=== PATIENT | female | born 1970 ===

== ENCOUNTER 2020-08-30 13:04 | Emergency (ER) | payer BC ==
--- NOTE | 2020-08-30 18:02 | Emergency Department Report ---
ED General Adult HPI - General Chief complaint: Fever Stated complaint: CHILLS,FEVER Time Seen by Provider: 08/30/20 17:17 Source: patient Mode of arrival: Ambulatory Limitations: No Limitations - History of Present Illness Initial comments: 50-year-old female who reports no significant past history presents to the ER today with complaints of subjective fever, chills, and generalized body aches, intermittent sharp left-sided abdominal pain, urinary frequency, mild rhinorrhea and nasal congestion. Patient states that symptoms started about a week ago. Patient states that the fever seems to be mainly at night. She denies any cough, chest pain or shortness of breath. She denies any dysuria, urinary odor, hematuria or any abnormal vaginal symptoms. She denies any vomiting or diarrhea. Patient denies any apparent ill contacts or recent travel. She states that she did not take the COVID-19 test. MD Complaint: Fever, chills, body aches, abd pain - Related Data Previous Rx's Medication Instructions Recorded Last Taken Type Ibuprofen [Motrin 800 MG tab] 800 mg PO Q6HR PRN #30 tablet 08/30/20 Unknown Rx cephALEXin [Keflex] 500 mg PO Q6HR #30 capsule 08/30/20 Unknown Rx Allergies Allergy/AdvReac Type Severity Reaction Status Date / Time tilapia fish Allergy Unknown Uncoded 08/30/20 19:18 ED Review of Systems ROS: Stated complaint: CHILLS,FEVER Other details as noted in HPI Comment: All other systems reviewed and negative Constitutional: chills, fever Eyes: denies: eye pain, eye discharge, vision change ENT: denies: ear pain, throat pain Respiratory: denies: cough, shortness of breath, wheezing Cardiovascular: denies: chest pain, palpitations Gastrointestinal: abdominal pain. denies: nausea, vomiting, diarrhea, constipation, hematemesis, hematochezia Genitourinary: frequency. denies: urgency, dysuria, hematuria, discharge, abnormal menses, dyspareunia Skin: denies: rash, lesions, change in color, change in hair/nails Neurological: denies: headache, weakness, numbness, paresthesias, confusion, abnormal gait, vertigo Psychiatric: denies: anxiety, depression Hematological/Lymphatic: denies: easy bleeding, easy bruising ED Past Medical Hx - Past Medical History Previous Medical History?: No - Surgical History Past Surgical History?: No - Medications Home Medications: Home Medications Medication Instructions Recorded Confirmed Last Taken Type Ibuprofen [Motrin 800 MG tab] 800 mg PO Q6HR PRN #30 tablet 08/30/20 Unknown Rx cephALEXin [Keflex] 500 mg PO Q6HR #30 capsule 08/30/20 Unknown Rx ED Physical Exam - General Limitations: No Limitations General appearance: alert, in no apparent distress - Head Head exam: Present: atraumatic, normocephalic, normal inspection - Eye Eye exam: Present: normal appearance, PERRL, EOMI Pupils: Present: normal accommodation - ENT ENT exam: Present: normal exam, mucous membranes moist, TM's normal bilaterally - Neck Neck exam: Present: normal inspection, full ROM. Absent: meningismus - Respiratory Respiratory exam: Absent: normal lung sounds bilaterally, respiratory distress, wheezes, rales - Cardiovascular Cardiovascular Exam: Present: regular rate, normal rhythm, normal heart sounds - GI/Abdominal GI/Abdominal exam: Present: soft. Absent: distended, tenderness, guarding, rebound - Back Exam Back exam: Present: normal inspection, CVA tenderness (L). Absent: CVA tenderness (R) - Neurological Exam Neurological exam: Present: alert, oriented X3, CN II-XII intact, normal gait - Psychiatric Psychiatric exam: Present: normal affect, normal mood - Skin Skin exam: Present: intact ED Course Vital Signs 08/30/20 08/30/20 16:11 19:30 Temperature 99.4 F Pulse Rate 98 H Respiratory 18 16 Rate Blood Pressure 119/81 O2 Sat by Pulse 98 Oximetry ED Medical Decision Making - Lab Data Result diagrams: 08/30/20 17:47 08/30/20 17:47 - Radiology Data Radiology results: report reviewed Patient: NEHEMIAS LEGGETT MR# : [id number] : 1970 Acct:[id number] Age/Sex: 50 / F ADM Date: 08/30/20 Loc: ED Attending Dr: Ordering Physician: BERKLEY MCHUGH Date of Service: 08/30/20 Procedure(s): XR chest routine 2V Accession Number(s): [id number] cc: BERKLEY MCHUGH Fluoro Time In Minutes: CHEST 2 VIEWS INDICATION / CLINICAL INFORMATION: fever. COMPARISON: None available. FINDINGS: SUPPORT DEVICES: None. HEART / MEDIASTINUM: No significant abnormality. LUNGS / PLEURA: No significant pulmonary or pleural abnormality. No pneumothorax. ADDITIONAL FINDINGS: No significant additional findings. IMPRESSION: 1. No acute findings. Signer Name: Zhou Mancera MD Signed: 08/30/2020 6:42 PM Workstation Name: [id number] Transcribed By: CW Dictated By: LEO MANCERA MD Electronically Authenticated By: LEO MANCERA MD Signed Date/Time: 08/30/201841 DD/ 41 TD/TT: Critical care attestation.: If time is entered above; I have spent that time in minutes in the direct care of this critically ill patient, excluding procedure time. ED Disposition Clinical Impression: UTI (urinary tract infection) Disposition: TO HOME OR SELFCARE Is pt being admited?: No Does the pt Need Aspirin: No Condition: Stable Instructions: Urinary Tract Infection, Adult Additional Instructions: Take the Keflex as prescribed. Take the Motrin as prescribed. Recommend that you drink lots of water. Follow-up with your primary care doctor next week. Return to the ER if your symptoms changes or worsens in any way. Prescriptions: cephALEXin [Keflex] 500 mg PO Q6HR #30 capsule Ibuprofen [Motrin 800 MG tab] 800 mg PO Q6HR PRN #30 tablet PRN Reason: PAin Referrals: DEXTER HIGHTOWER MD [Staff Physician] - 3-5 Days Forms: Work/School Release Form(ED) Time of Disposition: 19:57
[2020-08-30 18:22] LABS: Alanine Aminotransferase 13 units/L (7-56); Albumin 4.1 g/dL (3.9-5); BUN/Creatinine Ratio 14; Blood Urea Nitrogen 11 mg/dL (7-17); Calcium 9.4 mg/dL (8.4-10.2); Hemolysis Index 5
[2020-08-30 18:29] LABS: Basophils % (Auto) 0.3 % (0.0-1.8); Eosinophils % (Auto) 0.2 % (0.0-4.3); Hematocrit 38.6 % (30.3-42.9); Hemoglobin 12.9 gm/dl (10.1-14.3); Lymphocytes # (Auto) 1.4 K/mm3 (1.2-5.4); Lymphocytes % (Auto) 29.6 % (13.4-35.0); Mean Corpuscular HGB Conc 33 % (30-34); Mean Corpuscular Volume 95 fl (79-97); Monocytes # (Auto) 0.6 K/mm3 (0.0-0.8); Monocytes % (Auto) 13.2 % (0.0-7.3); Platelet Count 192 K/mm3 (140-440); Red Blood Count 4.05 M/mm3 (3.65-5.03)
--- NOTE | 2020-08-30 18:47 | XRay Report ---
CHEST 2 VIEWS INDICATION / CLINICAL INFORMATION: fever. COMPARISON: None available. FINDINGS: SUPPORT DEVICES: None. HEART / MEDIASTINUM: No significant abnormality. LUNGS / PLEURA: No significant pulmonary or pleural abnormality. No pneumothorax. ADDITIONAL FINDINGS: No significant additional findings. IMPRESSION: 1. No acute findings. Signer Name: Zhou Mancera MD Signed: 08/30/2020 6:42 PM Workstation Name: [id number]
[2020-08-30 18:59] LABS: Bacteria,Urine 4+ /HPF (Negative); Bilirubin,Urine NEG (Negative); Blood,Urine SM (Negative); Color,Urine Amber (Yellow); Mucus,Urine 3+ /HPF
[2020-08-30 19:00] LABS: WBC,Urine > 182.0 /HPF (0.0-6.0)
[2020-08-30] MEDS: IBUPROFEN 800 MG TAB PO ONE ×2 (19:30→19:38)
[2020-08-30] MEDS ORDERED: LIDOCAINE-MPF (1%) 10 MG/1 ML VIAL 5 ML INFILTRATI ONE (20:07)
[2020-08-30 20:17] VITALS: BP 111/62
== END 2020-08-30 20:15 | disposition home or self-care (01) ==
LOC: ED 13:04
DX: N39.0 Urinary tract infection, site not specified (principal); Z79.1 Long term (current) use of non-steroidal anti-inflammatories (NSAID); Z79.899 Other long term (current) drug therapy; Z91.013 Allergy to seafood
CPT/HCPCS: 36415; 71046; 80053; 81001; 83735; 84703; 85025; 87086; 99283; J0696; 87076; 87186

== ENCOUNTER 2020-12-04 15:42 | Emergency (ER) | payer BC ==
[2020-12-04 15:51] VITALS: BP 108/66
[2020-12-04 16:45] LABS: Bacteria,Urine 2+ /HPF (Negative); Bilirubin,Urine NEG (Negative); Blood,Urine MOD (Negative); Color,Urine Amber (Yellow); Mucus,Urine 2+ /HPF
[2020-12-04] MEDS ORDERED: SODIUM CHLORIDE 0.9% 1000 ML 1,000 ML IV ONE (17:00)
--- NOTE | 2020-12-04 17:36 | Emergency Department Report ---
ED General Adult HPI - General Chief complaint: Abdominal Pain Stated complaint: BLADDER, KIDNEY INFECTION Time Seen by Provider: 12/04/20 16:55 Source: patient Mode of arrival: Ambulatory Limitations: No Limitations - History of Present Illness Initial comments: 50-year-old female who reports no significant past medical history presents to the ER today with complaints of right flank pain and UTI symptoms. Patient states that her symptoms started 1 week ago. She reports urinary frequency, urinary odor dysuria, subjective fever, generalized body aches, chills, intermittent diaphoresis and nausea. She states that when she wiped after urinating today she noticed "brown stuff" on the toilet tissue but otherwise has not noticed any blood in her urine. She denies any bowel changes. She states that she took 400 mg ibuprofen which did not help much. She is unsure when her last menstrual cycle was. She reports no other symptoms at this time. MD Complaint: Right flank pain, UTI symptoms -: week(s) (1) Severity scale (0 -10): 5 - Related Data Previous Rx's Medication Instructions Recorded Last Taken Type Ibuprofen [Motrin 800 MG tab] 800 mg PO Q6HR PRN #30 tablet 08/30/20 Unknown Rx Ketorolac [Toradol] 10 mg PO Q6H PRN #20 tablet 12/04/20 Unknown Rx Ondansetron [Zofran Odt] 4 mg PO Q8HR #15 tab.rapdis 12/04/20 Unknown Rx cephALEXin [Keflex] 500 mg PO Q6HR #40 capsule 12/04/20 Unknown Rx Allergies Allergy/AdvReac Type Severity Reaction Status Date / Time tilapia fish Allergy Unknown Uncoded 12/04/20 15:48 ED Review of Systems ROS: Stated complaint: BLADDER, KIDNEY INFECTION Other details as noted in HPI Comment: All other systems reviewed and negative Constitutional: denies: chills, fever Eyes: denies: eye pain, eye discharge, vision change ENT: denies: ear pain, throat pain Respiratory: denies: cough, shortness of breath, wheezing Gastrointestinal: abdominal pain, nausea. denies: vomiting, diarrhea, constipation, hematemesis, melena, hematochezia Genitourinary: urgency, dysuria, frequency, other (Urinary odor). denies: hematuria, discharge, abnormal menses, dyspareunia Musculoskeletal: back pain Skin: denies: rash, lesions Neurological: denies: headache, weakness, numbness, paresthesias, confusion, abnormal gait, vertigo Psychiatric: denies: anxiety, depression, auditory hallucinations, visual hallucinations, homicidal thoughts, suicidal thoughts Hematological/Lymphatic: denies: easy bleeding, easy bruising ED Past Medical Hx - Past Medical History Previous Medical History?: No - Surgical History Past Surgical History?: No - Social History Smoking Status: Never Smoker Substance Use Type: None - Medications Home Medications: Home Medications Medication Instructions Recorded Confirmed Last Taken Type Ibuprofen [Motrin 800 MG tab] 800 mg PO Q6HR PRN #30 tablet 08/30/20 Unknown Rx Ketorolac [Toradol] 10 mg PO Q6H PRN #20 tablet 12/04/20 Unknown Rx Ondansetron [Zofran Odt] 4 mg PO Q8HR #15 tab.rapdis 12/04/20 Unknown Rx cephALEXin [Keflex] 500 mg PO Q6HR #40 capsule 12/04/20 Unknown Rx ED Physical Exam - General Limitations: No Limitations General appearance: alert, in no apparent distress - Head Head exam: Present: atraumatic, normocephalic, normal inspection - Eye Eye exam: Present: normal appearance, PERRL, EOMI Pupils: Present: normal accommodation - ENT ENT exam: Present: normal exam, mucous membranes moist - Neck Neck exam: Present: normal inspection, full ROM - Respiratory Respiratory exam: Present: normal lung sounds bilaterally. Absent: respiratory distress, wheezes, rales, rhonchi - Cardiovascular Cardiovascular Exam: Present: regular rate, normal rhythm, normal heart sounds - GI/Abdominal GI/Abdominal exam: Present: soft, tenderness (mild right upper quandrant ttp). Absent: distended, guarding, rebound, rigid - Back Exam Back exam: Present: normal inspection, full ROM, CVA tenderness (R) - Neurological Exam Neurological exam: Present: alert, oriented X3, CN II-XII intact, normal gait - Psychiatric Psychiatric exam: Present: normal affect, normal mood - Skin Skin exam: Present: intact ED Course Vital Signs 12/04/20 15:50 Temperature 98.5 F Pulse Rate 91 H Respiratory 20 Rate Blood Pressure 108/66 [Right] O2 Sat by Pulse 99 Oximetry ED Medical Decision Making - Lab Data Result diagrams: 12/04/20 17:11 12/04/20 17:11 - Radiology Data Radiology results: report reviewed Patient: NEHEMIAS LEGGETT MR# : [id number] : 1970 Acct:[id number] Age/Sex: 50 / F ADM Date: 12/04/20 Loc: ED Attending Dr: Ordering Physician: BERKLEY MCHUGH Date of Service: 12/04/20 Procedure(s): CT abdomen pelvis wo con Accession Number(s): [id number] cc: BERKLEY MCHUGH CT ABDOMEN AND PELVIS WITHOUT CONTRAST INDICATION / CLINICAL INFORMATION: Right flank pain chronic . TECHNIQUE: Axial CT images were obtained through the abdomen and pelvis without IV contrast. All CT scans at this location are performed using CT dose reduction for ALARA by means of automated exposure control. COMPARISON: None available. FINDINGS: LOWER CHEST: No significant abnormality. LIVER: No significant abnormality. GALLBLADDER: No significant abnormality. BILE DUCTS: No significant abnormality. PANCREAS: No significant abnormality. SPLEEN: No significant abnormality. ADRENALS: No significant abnormality. RIGHT KIDNEY / URETER: Mild inflammation adjacent to the right kidney. No active obstruction or definitive ureteral stone. LEFT KIDNEY / URETER: No significant abnormality. STOMACH / SMALL BOWEL: No significant abnormality. COLON: No significant abnormality. APPENDIX: Nonvisualized. No right lower quadrant inflammatory process. PERITONEUM: No free fluid. No free air. No fluid collection. LYMPH NODES: No significant adenopathy. VASCULAR STRUCTURES: No significant abnormality. URINARY BLADDER: No significant abnormality. REPRODUCTIVE ORGANS: No significant abnormality. ADDITIONAL FINDINGS: None. SKELETAL SYSTEM: No significant abnormality. IMPRESSION: Mild inflammation adjacent to the right kidney without active obstruction. Recently passed stone and infection are the most likely etiologies. Signer Name: Jensen Linares MD Signed: 12/04/2020 6:11 PM Workstation Name: [id number] Transcribed By: ES Dictated By: Jensen Linares MD Electronically Authenticated By: Jensen Linares MD Signed Date/Time: 12/04/201810 DD/ 05 TD/TT: - Medical Decision Making Labs reviewed -- CBC and CMP show no significant acute abnormalities. Urinalysis concerning for UTI. Urine culture is pending. CT abdomen pelvis without contrast shows Mild inflammation adjacent to the right kidney without active obstruction. Recently passed stone and infection are the most likely etiologies. Patient currently resting comfortably. She is not in any acute pain distress. She reports some improvement of her symptoms after IV fluids and pain meds. She is currently not toxic, or ill-appearing. He appears hydrated. She is neurologically intact with a normal gait. Her vital signs are stable. Discussed lab and imaging results with patient. She will be started on antibiotics for her UTI. Encouraged her to continue drinking lots of water. Recommend close follow-up with her primary care doctor but she understands to return to the ER if her symptoms worsens in any way. Patient was stable at time of discharge. Critical care attestation.: If time is entered above; I have spent that time in minutes in the direct care of this critically ill patient, excluding procedure time. ED Disposition Clinical Impression: UTI (urinary tract infection) Disposition: - TO HOME OR SELFCARE Is pt being admited?: No Does the pt Need Aspirin: No Condition: Stable Instructions: Urinary Tract Infection, Adult, [id number], Abdominal Pain (ED) Additional Instructions: Recommend that he take the Keflex and the Toradol as prescribed. Take the Zofran as needed for vomiting or nausea. Drink lots of fluids. Follow-up closely with your primary care doctor. Return to the ER if your symptoms changes or worsens in any way Prescriptions: cephALEXin [Keflex] 500 mg PO Q6HR #40 capsule Ketorolac [Toradol] 10 mg PO Q6H PRN #20 tablet PRN Reason: Pain Ondansetron [Zofran Odt] 4 mg PO Q8HR #15 tab.rapdis Referrals: [facility] [Provider Group] - 3-5 Days Forms: Work/School Release Form(ED) Time of Disposition: 19:42
[2020-12-04 18:06] LABS: Alanine Aminotransferase 20 units/L (7-56); Albumin 3.6 g/dL (3.9-5); BUN/Creatinine Ratio 16; Blood Urea Nitrogen 14 mg/dL (7-17); Calcium 9.2 mg/dL (8.4-10.2); Hemolysis Index 17
[2020-12-04 18:08] LABS: Basophils % (Auto) 0.1 % (0.0-1.8); Lymphocytes # (Auto) 1.1 K/mm3 (1.2-5.4); Lymphocytes % (Auto) 13.2 % (13.4-35.0); Mean Corpuscular HGB Conc 34 % (30-34); Mean Corpuscular Volume 93 fl (79-97); Monocytes # (Auto) 1.2 K/mm3 (0.0-0.8); Monocytes % (Auto) 14.9 % (0.0-7.3); Platelet Count 159 K/mm3 (140-440); Red Blood Count 3.78 M/mm3 (3.65-5.03); Red Cell Distribution Width 12.3 % (13.2-15.2)
--- NOTE | 2020-12-04 18:15 | Cat Scan Report ---
CT ABDOMEN AND PELVIS WITHOUT CONTRAST INDICATION / CLINICAL INFORMATION: Right flank pain chronic . TECHNIQUE: Axial CT images were obtained through the abdomen and pelvis without IV contrast. All CT scans at this location are performed using CT dose reduction for ALARA by means of automated exposure control. COMPARISON: None available. FINDINGS: LOWER CHEST: No significant abnormality. LIVER: No significant abnormality. GALLBLADDER: No significant abnormality. BILE DUCTS: No significant abnormality. PANCREAS: No significant abnormality. SPLEEN: No significant abnormality. ADRENALS: No significant abnormality. RIGHT KIDNEY / URETER: Mild inflammation adjacent to the right kidney. No active obstruction or defin itive ureteral stone. LEFT KIDNEY / URETER: No significant abnormality. STOMACH / SMALL BOWEL: No significant abnormality. COLON: No significant abnormality. APPENDIX: Nonvisualized. No right lower quadrant inflammatory process. PERITONEUM: No free fluid. No free air. No fluid collection. LYMPH NODES: No significant adenopathy. VASCULAR STRUCTURES: No significant abnormality. URINARY BLADDER: No significant abnormality. REPRODUCTIVE ORGANS: No significant abnormality. ADDITIONAL FINDINGS: None. SKELETAL SYSTEM: No significant abnormality. IMPRESSION: Mild inflammation adjacent to the right kidney without active obstruction. Recently passe d stone and infection are the most likely etiologies. Signer Name: Jensen Linares MD Signed: 12/04/2020 6:11 PM Workstation Name: [id number]
[2020-12-04] MEDS ORDERED: KETOROLAC 30 MG/1 ML INJ IV ONE (18:32)
== END 2020-12-04 20:00 | disposition home or self-care (01) ==
LOC: ED 15:42
DX: N39.0 Urinary tract infection, site not specified (principal); Z91.013 Allergy to seafood
CPT/HCPCS: 36415; 74176; 80053; 81001; 84703; 85025; 87076; 87086; 87186; 96361; 96374; 99284; J1885; J7030